=== PATIENT | male | born 1960 | race African-American/Black ===

== ENCOUNTER 2019-04-04 15:09 | Inpatient (IN) | payer MEDICAID, OTHER ==
[~2019-04-04] VITALS: Ht 185.4 cm; Wt 80.4 kg
[~2019-04-04 15:09] MED LIST: MEDICAL MARAJUANA; PHEN100C70
[2019-04-04 16:12] LABS: Basophils # (auto) 0 uL; Basophils % (auto) 0.3 % (0.0-2.0); Eosinophils # (auto) 0 uL; Lymphocytes # (auto) 0.4 uL; Neutrophils # (auto) 8.8 uL; White Blood Cell 9.5 10^3/uL (4.4-10.8)
[2019-04-04 16:14] LABS: Hematocrit 24.1 % (41.0-53.0); Hemoglobin 7.9 g/dL (13.5-17.5); Lymphocytes % (auto) 4.3 % (10.0-50.0); Mean Corpuscular Hemoglobin 26.8 pg (28.0-32.0); Mean Corpuscular Hgb Conc. 32.9 g/dL (32.0-36.0); Mean Corpuscular Volume 81.3 fL (80.0-100.0); Monocytes # (auto) 0.2 uL; Monocytes % (auto) 2.6 % (0.0-12.0); Neutrophils % (auto) 92.8 % (37.0-80.0); Platelet Count (auto) 324 10^3/uL (140-450); Red Blood Cells 2.96 10^6/uL (4.5-5.90); Red Cell Distribution Width 15.3 % (11.8-14.3)
[2019-04-04 16:30] LABS: Alanine Aminotransferase 23 U/L (16-61); Albumin 2.2 g/dL (3.4-5.0); Anion Gap 11 (5-15); BUN/Creatinine Ratio 14.1; Blood Urea Nitrogen 71 mg/dL (7-18); Calcium 7.7 mg/dL (8.5-10.1); Carbon Dioxide 21 mmol/L (21-32); Chloride 105 mmol/L (98-107); GFR African American 15 mL/min; GFR Non-African American 13 mL/min; Glucose 101 mg/dL (74-106); Potassium 5.2 mmol/L (3.5-5.1); Sodium 137 mmol/L (136-145)
[2019-04-04 16:38] LABS: Alkaline Phosphatase 66 U/L (45-117); Aspartate Aminotransferase 18 U/L (15-37); Bilirubin, Total 0.2 mg/dL (0.2-1.0); Total Protein 6.5 g/dL (6.4-8.2)
[2019-04-04] MEDS ORDERED: hydrALAZINE HCL 20 MG/ML VL IV ONE (21:00)
[2019-04-05 00:29] LABS: Urine Bacteria FEW /hpf (None Seen); Urine Blood 2+ /uL (Negative); Urine Hyaline Cast MOD /lpf (0 - 2); Urine Specific Gravity 1.012 (1.001-1.035); Urine WBC 2 /hpf (0 - 3)
[2019-04-05 02:13] LABS: Alcohol, Urine < 3.0 mg/dL (0-5); Amphetamine Screen, Urine NEGATIVE (NEGATIVE); Barbiturate Scree,Urine NEGATIVE (NEGATIVE); Benzodiazephine Screen, Urine NEGATIVE (NEGATIVE); Cannabinoid Screen, Urine NEGATIVE (NEGATIVE); Cocaine Screen, Urine NEGATIVE (NEGATIVE); Opiate Scree,Urine NEGATIVE (NEGATIVE); Phencyclidine Screen, Urine NEGATIVE (NEGATIVE)
[2019-04-05] MEDS ORDERED: ONDANSETRON HCL 4 MG/2 ML VIAL IV PRN ×2 (03:45→04:30)
[2019-04-05] MEDS ORDERED: ACETAMINOPHEN 500 MG TAB PO PRN ×2 (03:45→04:30)
[2019-04-05] MEDS ORDERED: LORazepam 2MG/ML-1ML VIAL IV PRN (03:45)
[2019-04-05] MEDS ORDERED: HYDROcodone-ACET 5/325MG TAB PO PRN (04:30)
[2019-04-05] MEDS ORDERED: TEMAZEPAM 15 MG CAP PO PRN (04:30)
[2019-04-05] MEDS ORDERED: cloNIDine HCL 0.1 MG TAB PO PRN (04:30)
[2019-04-05 04:49] LABS: Basophils # (auto) 0.1 uL; Eosinophils # (auto) 0.1 uL; Mean Corpuscular Volume 81.9 fL (80.0-100.0); Monocytes # (auto) 1.2 uL; Neutrophils # (auto) 8.3 uL; White Blood Cell 10.8 10^3/uL (4.4-10.8)
[2019-04-05 04:51] LABS: Basophils % (auto) 0.5 % (0.0-2.0); Eosinophils % (auto) 0.7 % (0.0-7.0); Hematocrit 24.4 % (41.0-53.0); Lymphocytes # (auto) 1.2 uL; Mean Corpuscular Hemoglobin 26.9 pg (28.0-32.0); Mean Corpuscular Hgb Conc. 32.8 g/dL (32.0-36.0); Monocytes % (auto) 10.9 % (0.0-12.0); Neutrophils % (auto) 76.9 % (37.0-80.0); Platelet Count (auto) 320 10^3/uL (140-450); Red Blood Cells 2.98 10^6/uL (4.5-5.90); Red Cell Distribution Width 15.4 % (11.8-14.3)
[2019-04-05 05:10] LABS: BUN/Creatinine Ratio 14.6; Calcium 7.4 mg/dL (8.5-10.1); Potassium 4.3 mmol/L (3.5-5.1)
[2019-04-05] MEDS ORDERED: AZITHROMYCIN 500MG/ 250ML 250 ML IV ONE (06:00)
[2019-04-05] MEDS ORDERED: PRE1T PO (06:06)
[2019-04-05] MEDS ORDERED: CHOL20007 PO (06:06)
[2019-04-05] MEDS ORDERED: AMLO5TAB15 PO (06:06)
[2019-04-05] MEDS ORDERED: HYDR-4296 PO (06:06)
[2019-04-05] MEDS ORDERED: ASPI-404 PO (06:06)
[2019-04-05] MEDS ORDERED: PHE100C PO (06:06)
[2019-04-05] MEDS ORDERED: LATA0.0015 EACHEYE (06:06)
[2019-04-05] MEDS ORDERED: FURO40TA4 PO (06:06)
[2019-04-05] MEDS: cefTRIAXone 1GM/50ML D5W 50 ML IV SCH (06:24)
[2019-04-05] MEDS ORDERED: hydrALAZINE HCL 20 MG/ML VL IV ONE (06:30)
--- NOTE | 2019-04-05 06:50 | NUR ---
Telemetry admit from ER MARGOTHSHIRA admitted to Telemetry unit. Patient oriented to Hector Dumont, primary RN, unit, room, bed, and unit policies regarding patient care and visiting hours. Patient now on continuous telemetry monitoring, tele box #79 and telemetry reading on arrival to unit is SR 60s. Patient weighed by bedscale and encouraged to call if they need something. All questions and concerns addressed, patient verbalized understanding.
[2019-04-05 07:07] VITALS: BP 146/74
--- NOTE | 2019-04-05 07:15 | NUR ---
Opening Shift Note Assumed care of patient. awake No S/S of distress/SOB or pain. Bed locked and in the lowest position, side rails up x2, call light with in reach. patient instructed to call for assistance,verbalized understanding.Will continue to monitor.
[2019-04-05] MEDS: PANTOPRAZOLE 40 MG TAB PO SCH (07:54)
[2019-04-05] MEDS ORDERED: SODIUM CHL 0.9% 1000 ML BAG XX ONE (08:15)
--- NOTE | 2019-04-05 08:25 | NUR ---
HERE TO SEE AND EXAMINED PATIENT RECEIVED ORDER
[2019-04-05 08:33] LABS: % Iron Saturation 12.4 % (20-55)
[2019-04-05 09:00] VITALS: BP 147/74
[2019-04-05] MEDS ORDERED: cefTRIAXone 1GM/50ML D5W 50 ML IV SCH (09:00)
--- NOTE | 2019-04-05 09:05 | NUR ---
FROM [facility], WILL BE HERE TO INSERT FERNANDO CATHETER FOR HEMODIALYSIS AT BEDSIDE
--- NOTE | 2019-04-05 09:50 | NUR ---
CONSENT FOR FERNANDO CATHETER INSERTION SIGNED BY PATIENT
--- NOTE | 2019-04-05 09:55 | NUR ---
DR. CALI INSERTED FERNANDO CATHETER AT BEDSIDE TO RIGHT SIDE OF NECK,PATIENT TOLERATED WELL
[2019-04-05] MEDS: FUROSEMIDE 40 MG TAB PO SCH (10:00)
[2019-04-05] MEDS ORDERED: FUROSEMIDE 40 MG TAB PO SCH (10:00)
[2019-04-05] MEDS: ASPirin-EC 81 mg tab PO SCH (10:00)
[2019-04-05] MEDS: DOCUSATE SOD 100 MG CAP PO SCH ×2 (10:00→21:46)
[2019-04-05] MEDS: amLODIPine BESYLATE 5 MG TAB PO SCH (10:00)
--- NOTE | 2019-04-05 11:30 | NUR ---
RECEIVED ORDER FROM DR. LAGUNA TO OBTAIN X RAY TO CHECK FERNANDO CATHETER POSITIONING
[2019-04-05 11:45] LABS: Hepatitis A Ab IgM Negative; Hepatitis B Core IgM Negative; Hepatitis B Surface Antigen Negative (Negative); Hepatitis C Antibody Negative (Negative)
[2019-04-05] MEDS: PHENYTOIN SODIUM 100 MG CAP PO SCH ×2 (11:53→21:39)
[2019-04-05] MEDS: predniSONE 20 MG TAB PO SCH (11:53)
--- NOTE | 2019-04-05 11:53 | NUR ---
PER PHOTONICS ENGINEER TO HOLD BP MEDS FOR HEMODIALYSIS THIS P.M.ALL BP MEDS INCLUDING LASIX HOLD
[2019-04-05] MEDS: hydrALAZINE HCL 25 MG TAB PO SCH ×3 (11:55→21:46)
--- NOTE | 2019-04-05 13:00 | NUR ---
DR.L. HALL HERE TO SEE AND EXAMINED PATIENT EXPLAIN TO PATIENT AND PLAN OF CARE AND DISEASE PROCESS.
[2019-04-05 13:25] VITALS: BP 159/84
[2019-04-05 16:19] VITALS: BP 162/89
--- NOTE | 2019-04-05 17:45 | NUR ---
administrative representative at bedside to start Hemodialysis treatment
--- NOTE | 2019-04-05 18:00 | NUR ---
DR. MIXON HERE TO SEE AND EXAMINED PATIENT
--- NOTE | 2019-04-05 19:01 | NUR ---
HEMODIALYSIS IN PROGRESS
--- NOTE | 2019-04-05 19:15 | NUR ---
RECEIVED PATIENT FROM DAY SHIFT RN. PATIENT RESTING IN BED. NO S/S OF DISTRESS NOTED. DENIED PAIN FOR NOW. FAMILY AT BEDSIDE. HEMODIALYSIS IN PROGRESS. PATIENT TOLERATED WELL. NO S/S OF REACTION AND DISCOMFORT NOTED. POC INSTRUCTED AND ENCOURAGED PATIENT TO CALL FOR CHEMISTRY FACULTY MEMBER IF NEEDED. BED IN LOWEST POSITION WITH PADDED SIDE RAILS UP X 2. CALL BLANCO WITHIN REACH. ALARM ON. CONTINUE TO MONITOR FOR CHANGES Q1H AND PRN.
[2019-04-05] MEDS ORDERED: EPOETIN ALFA 10,000 UNIT/1 ML VIAL SC ONE (21:00)
--- NOTE | 2019-04-05 21:47 | NUR ---
DIALYSIS FINISHED. PATIENT TOLERATED WELL. PATIENT'S BP 159/56 AFTER DIALYSIS, MIDNIGHT BP MEDICATION GIVEN FOR NOW, SINCE PATIENT MISSED HIS BP MEDICATIONS BECAUSE OF THE DIALYSIS. CONTINUE TO MONITOR.
[2019-04-05 22:00] VITALS: BP 159/56
--- NOTE | 2019-04-06 00:49 | NUR ---
REINFORCED PATIENT NPO FROM NOW ON. WATER REMOVED FROM BEDSIDE. CONTINUE TO MONITOR.
--- NOTE | 2019-04-06 02:20 | NUR ---
PATIENT SLEEPING. NO S/S OF DISTRESS NOTED. CONTINUE TO MONITOR.
[2019-04-06 05:00] VITALS: BP 146/85
[2019-04-06] MEDS: SODIUM CHLORIDE 0.9% 1,000 ML IV SCH ×2 (05:26→16:25)
[2019-04-06] MEDS: cefTRIAXone 1GM/50ML D5W 50 ML IV SCH (05:40)
[2019-04-06] MEDS: hydrALAZINE HCL 25 MG TAB PO SCH ×4 (05:40→23:39)
[2019-04-06] MEDS: PANTOPRAZOLE 40 MG TAB PO SCH (05:41)
--- NOTE | 2019-04-06 05:50 | NUR ---
SCHEDULED BP MEDICATION GIVEN ORDERED WITH LITTER WATER. REINFORCED NPO NOW. PATIENT VERBALIZED UNDERSTANDING. CONTINUE TO MONITOR.
[2019-04-06] MEDS: AZITHROMYCIN 500MG/ 250ML 250 ML IV SCH (06:58)
--- NOTE | 2019-04-06 07:30 | NUR ---
OPENING SHIFT NOTE: Received report from NOC RNCami. Assumed care of patient. Patient resting in bed. Denies pain. Bed in lowest position and rails x2 up. Call light within reach. Updated on plan of care. Will continue to monitor.
[2019-04-06 08:20] VITALS: BP 146/76
--- NOTE | 2019-04-06 08:30 | NUR ---
NPO: Patient was to be NPO for tunnel dialysis catheter placement today. Patient found eating. warehouse shift supervisor failed to inform day shift NA that patient had a procedure. Notified TIMOTHY [facility] that patient had ate a full meal. Will push patient back to 1000 and staff state they will premedicate patient with Zofran. Procedure still to occur.
[2019-04-06 08:35] LABS: Basophils # (auto) 0 uL; Eosinophils # (auto) 0 uL; Lymphocytes # (auto) 1.2 uL; Monocytes # (auto) 0.8 uL; Neutrophils # (auto) 4.7 uL; Red Blood Cells 3.01 10^6/uL (4.5-5.90); White Blood Cell 6.8 10^3/uL (4.4-10.8)
[2019-04-06 08:36] LABS: Basophils % (auto) 0.4 % (0.0-2.0); Eosinophils % (auto) 0.3 % (0.0-7.0); Hematocrit 24.2 % (41.0-53.0); Hemoglobin 8.1 g/dL (13.5-17.5); Lymphocytes % (auto) 18.3 % (10.0-50.0); Mean Corpuscular Hgb Conc. 33.5 g/dL (32.0-36.0); Mean Corpuscular Volume 80.6 fL (80.0-100.0); Monocytes % (auto) 12.1 % (0.0-12.0); Neutrophils % (auto) 68.9 % (37.0-80.0); Nucleated Red Blood Cells % 0.1 %; Platelet Count (auto) 331 10^3/uL (140-450); Red Cell Distribution Width 15.8 % (11.8-14.3)
[2019-04-06 08:45] LABS: INR 1.05 (0.9-1.15); Partial Thromboplastin Time 26.5 sec (23.64-32.05)
[2019-04-06 08:46] LABS: BUN/Creatinine Ratio 13.5; Calcium 7.3 mg/dL (8.5-10.1); Potassium 3.9 mmol/L (3.5-5.1)
--- NOTE | 2019-04-06 09:30 | NUR ---
FAMILY: Patient's , Lisa called. Verified password. Updated on plan of care. Questions answered.
--- NOTE | 2019-04-06 10:00 | NUR ---
MEDICATIONS: 1000 medications not given due to patient being NPO and off floor for procedure. Will administer when patient returns.
[2019-04-06] MEDS ORDERED: IOHEXOL 350 MG/ML 100ML IJ ONE (10:34)
[2019-04-06] MEDS ORDERED: LIDOCAINE 2%HCL (LOCAL ANESTH.) INJ 20ML MDV ONE (10:34)
[2019-04-06] MEDS ORDERED: ONDANSETRON HCL 4 MG/2 ML VIAL IV PRN (10:45)
[2019-04-06] MEDS ORDERED: fentaNYL CITRATE 100 MCG/2 ML VL ONE (11:30)
[2019-04-06] MEDS ORDERED: MIDAZOLAM HCL 1MG/1ML-2 ML VIAL ONE (11:30)
[2019-04-06] MEDS ORDERED: HEPARIN SODIUM (PORCINE) 5000 UNITS/ML 1ML VIAL ONE (11:36)
[2019-04-06 12:00] VITALS: BP 141/83
[2019-04-06] MEDS ORDERED: ONDANSETRON HCL 4 MG/2 ML VIAL IV ONE (12:30)
[2019-04-06] MEDS: amLODIPine BESYLATE 5 MG TAB PO SCH (12:36)
[2019-04-06] MEDS ORDERED: ONDANSETRON HCL 4 MG/2 ML VIAL IV SCH (13:00)
[2019-04-06] MEDS ORDERED: CYCLOPHOSPHAMIDE IV ONE ×3 (13:00→16:00)
[2019-04-06] MEDS ORDERED: MESNA IV SCH (13:00)
[2019-04-06] MEDS ORDERED: MESNA IV ONE ×3 (13:00→22:00)
[2019-04-06] MEDS ORDERED: D5W 5% IV ONE ×5 (13:00→22:00)
[2019-04-06] MEDS: PHENYTOIN SODIUM 100 MG CAP PO SCH ×2 (13:12→22:13)
[2019-04-06] MEDS: ASPirin-EC 81 mg tab PO SCH (13:12)
[2019-04-06] MEDS: DOCUSATE SOD 100 MG CAP PO SCH ×2 (13:12→22:13)
[2019-04-06] MEDS: predniSONE 20 MG TAB PO SCH (13:12)
[2019-04-06] MEDS: FUROSEMIDE 40 MG TAB PO SCH (13:12)
[2019-04-06 13:20] VITALS: BP 141/83
[2019-04-06] MEDS: IRON SUCROSE COMPLEX 200 MG in SODIUM CHL 0.9% 100 ML IV SCH (15:00)
[2019-04-06] MEDS: ONDANSETRON HCL 4 MG/2 ML VIAL IV SCH ×2 (16:27→22:13)
--- NOTE | 2019-04-06 16:40 | NUR ---
CHEMO: Cyclophosphamide started. Verified by TIMOTHY Moore. Patient premedicated with Zofran 4mg IV and Mensa 150mg IV is running along with. Patient continues to receive NS at 75ml/hr throughout transfusion. Inital BP 137/74 HR 101. Will continue to monitor.
[2019-04-06 17:13] VITALS: BP 126/68
--- NOTE | 2019-04-06 18:37 | NUR ---
MD: Dr Pati Owens to see patient. Orders received.
--- NOTE | 2019-04-06 18:49 | NUR ---
CHEMO: Cyclopphosphamide complete. Patient tolerated well. IV site intact and asymptomatic. No signs of nausea/vomiting. Last vital signs BP 141/75 HR 109.
--- NOTE | 2019-04-06 19:16 | NUR ---
CLOSING SHIFT NOTE: Report given to NOC RNCami. Endorsed care of patient. RN aware that patient needs to continue to received IVF or NS @ 75ml/hr for the next 12 hours at minimum.
--- NOTE | 2019-04-06 19:46 | NUR ---
RECEIVED PATIENT FROM DAY SHIFT RN. PATIENT RESTING IN BED. NO S/S OF DISTRESS NOTED. DENIED PAIN FOR NOW. BP 137/88, HR 73. POC INSTRUCTED AND ENCOURAGED PATIENT TO CALL FOR BAKING POWDER MIXER IF NEEDED. BED IN LOWEST POSITION WITH PADDED SIDE RAILS UP X 2. CALL BLANCO WITHIN REACH. ALARM ON. CONTINUE TO MONITOR FOR CHANGES Q1H AND PRN.
--- NOTE | 2019-04-06 21:01 | NUR ---
PATIENT'S FAMILY ANDREW CALLED, PASSWORD VERIFIED. UPDATED PATIENT'S CONDITIONS. ALL CONCERNS ADDRESSED. CONTINUE TO MONITOR.
[2019-04-06 21:52] VITALS: BP 141/76
--- NOTE | 2019-04-06 22:37 | NUR ---
SCHEDULED MESNA GIVEN ORDERED AND ALMOST COMPLETED. PATIENT TOLERATED WELL. NO S/S OF SIDE EFFECTS NOTED. CONTINUE TO MONITOR.
--- NOTE | 2019-04-07 01:44 | NUR ---
CHEMOTHERAPY ONGOING. NO S/S OF SIDE EFFECTS OF MEDICATION NOTED. CONTINUE TO MONITOR.
[2019-04-07] MEDS ORDERED: MESNA IV ONE (02:00)
[2019-04-07] MEDS ORDERED: D5W 5% IV ONE (02:00)
--- NOTE | 2019-04-07 02:15 | NUR ---
MESNA COMPLETED. NO S/S OF SIDE EFFECTS NOTED. CONTINUE TO MONITOR.
[2019-04-07] MEDS: ONDANSETRON HCL 4 MG/2 ML VIAL IV SCH (03:45)
[2019-04-07 05:12] VITALS: BP 137/71
[2019-04-07] MEDS: cefTRIAXone 1GM/50ML D5W 50 ML IV SCH (05:54)
[2019-04-07] MEDS: hydrALAZINE HCL 25 MG TAB PO SCH ×3 (05:55→17:26)
[2019-04-07] MEDS: PANTOPRAZOLE 40 MG TAB PO SCH (05:56)
--- NOTE | 2019-04-07 05:57 | NUR ---
PATIENT SLEEPING. NO S/S OF DISTRESS NOTED. CONTINUE TO MONITOR.
[2019-04-07 06:15] LABS: Basophils # (auto) 0 uL; Eosinophils # (auto) 0 uL; Eosinophils % (auto) 0.1 % (0.0-7.0)
[2019-04-07 06:17] LABS: Basophils % (auto) 0.4 % (0.0-2.0); Hematocrit 22.5 % (41.0-53.0); Hemoglobin 7.6 g/dL (13.5-17.5); Lymphocytes # (auto) 0.9 uL; Lymphocytes % (auto) 13.7 % (10.0-50.0); Mean Corpuscular Hemoglobin 27.3 pg (28.0-32.0); Mean Corpuscular Hgb Conc. 33.7 g/dL (32.0-36.0); Mean Corpuscular Volume 80.8 fL (80.0-100.0); Monocytes # (auto) 1.1 uL; Monocytes % (auto) 16.2 % (0.0-12.0); Neutrophils # (auto) 4.8 uL; Neutrophils % (auto) 69.6 % (37.0-80.0); Platelet Count (auto) 303 10^3/uL (140-450); Red Blood Cells 2.78 10^6/uL (4.5-5.90); Red Cell Distribution Width 15.7 % (11.8-14.3); White Blood Cell 6.9 10^3/uL (4.4-10.8)
[2019-04-07 06:38] LABS: % Iron Saturation 48.5 % (20-55); BUN/Creatinine Ratio 13.9; Calcium 7.1 mg/dL (8.5-10.1); Potassium 4.2 mmol/L (3.5-5.1)
[2019-04-07] MEDS: AZITHROMYCIN 500MG/ 250ML 250 ML IV SCH (06:52)
[2019-04-07] MEDS ORDERED: SODIUM CHL 0.9% 1000 ML BAG XX ONE (07:00)
--- NOTE | 2019-04-07 08:00 | NUR ---
OPENING SHIFT NOTE ASSUMED CARE OF PATIENT. PATIENT AWAKE AND ALERT. NO SOB OR SIGNS OF DISTRESS NOTED. INSTRUCTED ON POC AND TO CALL FOR ASSISTANCE PRN. BED IN LOWEST POSITION WITH SIDE RAILS UP X2. WILL CONTINUE TO MONITOR.
[2019-04-07 09:00] VITALS: BP 148/72
--- NOTE | 2019-04-07 10:30 | NUR ---
SPOKE WITH DR PRINCE AND DR SALAZAR. ORDERS PLACED. WILL CARRY OUT.
[2019-04-07] MEDS: predniSONE 20 MG TAB PO SCH (10:41)
[2019-04-07] MEDS: amLODIPine BESYLATE 5 MG TAB PO SCH (10:42)
[2019-04-07] MEDS: DOCUSATE SOD 100 MG CAP PO SCH (10:42)
[2019-04-07] MEDS: FUROSEMIDE 40 MG TAB PO SCH (10:42)
[2019-04-07] MEDS: ASPirin-EC 81 mg tab PO SCH (10:42)
[2019-04-07] MEDS: PHENYTOIN SODIUM 100 MG CAP PO SCH ×2 (10:43→22:00)
--- NOTE | 2019-04-07 12:30 | NUR ---
SPOKE WITH DR SAAB. ORDERS PLACED. WILL CARRY OUT.
[2019-04-07 13:00] VITALS: BP 158/72
[2019-04-07] MEDS: IRON SUCROSE COMPLEX 200 MG in SODIUM CHL 0.9% 100 ML IV SCH (13:09)
[2019-04-07 14:06] LABS: Protein, Urine 261.8 mg/dL (0.0-11.9)
--- NOTE | 2019-04-07 14:54 | NUR ---
o/c note SS order. I called [facility] [phone] and had to leave message on addmissions voice mail to call me back for setting up chair time for this pt
[2019-04-07 17:00] VITALS: BP 152/82
--- NOTE | 2019-04-07 20:00 | NUR ---
Opening Shift Note Assumed care of patient, awake and alert. No S/S of distress/SOB or pain. Instructed on POC and to call for assist PRN, will continue to monitor for changes Q1hr and PRN. Patient's bed in low position and call light in reach.
[2019-04-07] MEDS ORDERED: EPOETIN ALFA 10,000 UNIT/1 ML VIAL SC ONE (21:00)
[2019-04-07 22:00] VITALS: BP 148/78
[2019-04-08] MEDS: DOCUSATE SOD 100 MG CAP PO SCH ×3 (00:24→21:38)
--- NOTE | 2019-04-08 04:10 | NUR ---
Patient noted to have telemetry reading of RVR with ST 150s. B/P - 184/123/; Pulse - 106; resp - 20. He is alert and oriented. Patient denies chest pains and Shortness of breath. Skin warm, dry and intact. EKG results: ST& T 122 wave abnormality. Results taken to DAVID Roberts, for reviewing. New order obtained for Labetalol 10 mg IVP now.
[2019-04-08] MEDS ORDERED: LABETALOL HCL 5 MG/ML ML 20ML VIAL IV ONE (04:45)
[2019-04-08 05:00] VITALS: BP 184/123
--- NOTE | 2019-04-08 05:00 | NUR ---
Patient continues to deny chest pain and shortness of breath. No acute distress noted. HR. 99-100s. Increase in HR noted with activity e.g., ambulating to bathroom.
[2019-04-08] MEDS: PANTOPRAZOLE 40 MG TAB PO SCH (05:41)
[2019-04-08] MEDS: cefTRIAXone 1GM/50ML D5W 50 ML IV SCH (05:41)
[2019-04-08] MEDS: hydrALAZINE HCL 25 MG TAB PO SCH ×5 (05:43→21:38)
[2019-04-08 06:08] LABS: Basophils # (auto) 0 uL; Basophils % (auto) 0.3 % (0.0-2.0); Eosinophils # (auto) 0 uL; Eosinophils % (auto) 0.1 % (0.0-7.0); Hematocrit 27.7 % (41.0-53.0); Hemoglobin 9.2 g/dL (13.5-17.5); Lymphocytes # (auto) 1.1 uL; Lymphocytes % (auto) 11.8 % (10.0-50.0); Mean Corpuscular Hgb Conc. 33.1 g/dL (32.0-36.0); Mean Corpuscular Volume 81.5 fL (80.0-100.0); Monocytes # (auto) 1.2 uL; Monocytes % (auto) 12.1 % (0.0-12.0); Neutrophils # (auto) 7.3 uL; Neutrophils % (auto) 75.7 % (37.0-80.0); Nucleated Red Blood Cells % 0.1 %; Platelet Count (auto) 347 10^3/uL (140-450); Red Cell Distribution Width 15.8 % (11.8-14.3); White Blood Cell 9.6 10^3/uL (4.4-10.8)
[2019-04-08 06:18] LABS: Potassium 3.7 mmol/L (3.5-5.1)
[2019-04-08 06:33] LABS: BUN/Creatinine Ratio 12.9; Bilirubin, Total 0.2 mg/dL (0.2-1.0); Calcium 7.8 mg/dL (8.5-10.1)
--- NOTE | 2019-04-08 07:15 | NUR ---
Patient awake no acute distress noted. HR 65-67. Shift change report given to day RN.
[2019-04-08] MEDS: AZITHROMYCIN 500MG/ 250ML 250 ML IV SCH (07:28)
--- NOTE | 2019-04-08 08:35 | NUR ---
OPENING SHIFT NOTE ASSUMED CARE OF PATIENT. PATIENT AWAKE AND ALERT. NO SOB OR SIGNS OF DISTRESS NOTED. INSTRUCTED ON POC AND TO CALL FOR ASSISTANCE PRN. PATIENT IS SITTING COMFORTABLY IN BED. BED IN LOWEST POSITION WITH SIDE RAILS UP X2. WILL CONTINUE TO MONITOR.
[2019-04-08 08:43] VITALS: BP 133/81
[2019-04-08] MEDS: PHENYTOIN SODIUM 100 MG CAP PO SCH ×2 (09:48→21:38)
[2019-04-08] MEDS: predniSONE 20 MG TAB PO SCH (09:49)
[2019-04-08] MEDS: ASPirin-EC 81 mg tab PO SCH (09:49)
[2019-04-08] MEDS: FUROSEMIDE 40 MG TAB PO SCH (09:49)
[2019-04-08] MEDS: amLODIPine BESYLATE 5 MG TAB PO SCH (09:50)
--- NOTE | 2019-04-08 12:45 | NUR ---
DR HALL AT BEDSIDE DR SPOKE WITH PATIENT. ORDERS PLACED. WILL CARRY OUT
[2019-04-08 13:00] VITALS: BP 141/75
--- NOTE | 2019-04-08 13:15 | NUR ---
CALLED DR HENRIQUEZ AT HER ANSWERING SERVICE. AWAITING CALLBACK PER DR HALL ORDERS.
[2019-04-08] MEDS: IRON SUCROSE COMPLEX 200 MG in SODIUM CHL 0.9% 100 ML IV SCH (13:32)
[2019-04-08 17:07] VITALS: BP 136/78
--- NOTE | 2019-04-08 19:20 | NUR ---
RECEIVED PATIENT FROM DAY SHIFT RN. PATIENT RESTING IN BED. NO S/S OF DISTRESS NOTED. DENIED PAIN FOR NOW. DRESSING ON RUC FOR TUNNEL CATH C/D/I. POC INSTRUCTED AND ENCOURAGED PATIENT TO CALL FOR POPCORN ATTENDANT IF NEEDED. BED IN LOWEST POSITION WITH PADDED SIDE RAILS UP X 2. CALL BLANCO WITHIN REACH. ALARM ON. CONTINUE TO MONITOR FOR CHANGES Q1H AND PRN.
--- NOTE | 2019-04-08 20:40 | NUR ---
MD SULLIVAN AT BEDSIDE.
[2019-04-08 21:00] VITALS: BP 159/92
[2019-04-08] MEDS ORDERED: LORazepam 2MG/ML-1ML VIAL IV PRN (21:15)
--- NOTE | 2019-04-08 21:39 | NUR ---
PATIENT'S BP 159/92. MIDNIGHT BP MEDICATION GIVEN FOR NOW, CONTINUE TO MONITOR.
--- NOTE | 2019-04-09 01:57 | NUR ---
PATIENT SLEEPING. NO S/S OF DISTRESS NOTED. CONTINUE TO MONITOR.
[2019-04-09 04:30] VITALS: BP 140/70
[2019-04-09 05:20] LABS: Basophils # (auto) 0 uL; Eosinophils # (auto) 0 uL; Hemoglobin 7.4 g/dL (13.5-17.5); Lymphocytes # (auto) 1.3 uL; Neutrophils # (auto) 6.9 uL
[2019-04-09 05:22] LABS: Basophils % (auto) 0.5 % (0.0-2.0); Eosinophils % (auto) 0.4 % (0.0-7.0); Lymphocytes % (auto) 13.7 % (10.0-50.0); Mean Corpuscular Hemoglobin 27.4 pg (28.0-32.0); Mean Corpuscular Hgb Conc. 33.6 g/dL (32.0-36.0); Mean Corpuscular Volume 81.4 fL (80.0-100.0); Monocytes # (auto) 1.2 uL; Neutrophils % (auto) 72.4 % (37.0-80.0); Platelet Count (auto) 300 10^3/uL (140-450); Red Blood Cells 2.71 10^6/uL (4.5-5.90); Red Cell Distribution Width 16.3 % (11.8-14.3); White Blood Cell 9.5 10^3/uL (4.4-10.8)
[2019-04-09 05:32] LABS: Calcium 7.4 mg/dL (8.5-10.1)
[2019-04-09 05:34] LABS: Albumin 1.7 g/dL (3.4-5.0); Potassium 3.9 mmol/L (3.5-5.1)
[2019-04-09 05:36] LABS: BUN/Creatinine Ratio 13.9
[2019-04-09 05:37] LABS: Bilirubin, Total 0.1 mg/dL (0.2-1.0); Total Protein 4.9 g/dL (6.4-8.2)
[2019-04-09] MEDS: cefTRIAXone 1GM/50ML D5W 50 ML IV SCH (05:55)
[2019-04-09] MEDS: hydrALAZINE HCL 25 MG TAB PO SCH (05:55)
[2019-04-09] MEDS: PANTOPRAZOLE 40 MG TAB PO SCH (05:55)
[2019-04-09] MEDS: AZITHROMYCIN 500MG/ 250ML 250 ML IV SCH (06:34)
[2019-04-09] MEDS ORDERED: SODIUM CHL 0.9% 1000 ML BAG XX ONE (07:00)
--- NOTE | 2019-04-09 07:45 | NUR ---
OPENING SHIFT NOTE ASSUMED CARE OF PATIENT. PATIENT AWAKE AND ALERT. FOUND PATIENTS IV CATHETER LYING ON BED. PATIENT STATED HE REMOVED IT. ALERT AND ORIENTED X4. WILL PLACE NEW IV CATHETER. NO SOB OR SIGNS OF DISTRESS NOTED. INSTRUCTED ON POC AND TO CALL FOR ASSISTANCE PRN. BED IN LOWEST POSITION WITH SIDE RAILS UP X2. WILL CONTINUE TO MONITOR.
[2019-04-09 09:17] VITALS: BP 148/91
[2019-04-09] MEDS: DOCUSATE SOD 100 MG CAP PO SCH (09:24)
[2019-04-09] MEDS: FUROSEMIDE 40 MG TAB PO SCH (09:24)
[2019-04-09] MEDS: predniSONE 20 MG TAB PO SCH (09:24)
[2019-04-09] MEDS: PHENYTOIN SODIUM 100 MG CAP PO SCH (09:25)
[2019-04-09] MEDS: ASPirin-EC 81 mg tab PO SCH (09:25)
[2019-04-09] MEDS: amLODIPine BESYLATE 5 MG TAB PO SCH (09:29)
--- NOTE | 2019-04-09 10:05 | NUR ---
PATIENT LEFT ROOM WITHOUT NOTIFYING ANYBODY. LEFT TELE BOX IN ROOM. CALLED SECURITY TO REPORT. PT HAD NO IV IN PLACE.
--- NOTE | 2019-04-09 10:15 | NUR ---
CALLED PATIENTS CONTACT PHONE NUMBER. ANSWERED. STATED SHE PICKED UP PATIENT. INFORMED HER THAT IF HIS PREVIOUS SYMPTOMS CONTINUE, TO CALL HIS PCP OR VISIT THE ER.
--- NOTE | 2019-04-09 11:30 | NUR ---
CALLED DR HALL. LEFT A MESSAGE STATING PATIENT HAS LEFT FACILITY AMA. PT IS WITH . LEFT TELE BOX AND IS WITHOUT AN IV.
[2019-04-09] MEDS ORDERED: EPOETIN ALFA 10,000 UNIT/1 ML VIAL SC ONE (21:00)
== END 2019-04-09 10:30 | disposition left against medical advice (07) | DRG 346 ==
LOC: ER 15:14 → TELE 15:15 → TELE-WESTW 04-05 06:39
PROVIDERS: ADMIT Nurse Practitioner Family; ATTEND Hospitalist
PROC: 0JH63XZ Insertion of Tunneled Vascular Access Device into Chest Subcutaneous Tissue and Fascia, Percutaneous Approach (ICD-10-PCS; principal; 2019-04-06)
PROC: 02H633Z Insertion of Infusion Device into Right Atrium, Percutaneous Approach (ICD-10-PCS; 2019-04-06)
PROC: B2141ZZ Fluoroscopy of Right Heart using Low Osmolar Contrast (ICD-10-PCS; 2019-04-06)
PROC: 5A1D70Z Performance of Urinary Filtration, Intermittent, Less than 6 Hours Per Day (ICD-10-PCS; 2019-04-06)
PROC: B244ZZZ Ultrasonography of Right Heart (ICD-10-PCS; 2019-04-06)
DX: M32.14 Glomerular disease in systemic lupus erythematosus (principal); E43 Unspecified severe protein-calorie malnutrition; N17.9 Acute kidney failure, unspecified; I12.0 Hypertensive chronic kidney disease with stage 5 chronic kidney disease or end stage renal disease; E87.5 Hyperkalemia; D50.9 Iron deficiency anemia, unspecified; F17.200 Nicotine dependence, unspecified, uncomplicated; G40.409 Other generalized epilepsy and epileptic syndromes, not intractable, without status epilepticus; M32.19 Other organ or system involvement in systemic lupus erythematosus; N18.6 End stage renal disease; F03.90 Unspecified dementia, unspecified severity, without behavioral disturbance, psychotic disturbance, mood disturbance, and anxiety; D63.1 Anemia in chronic kidney disease; K59.00 Constipation, unspecified; L29.9 Pruritus, unspecified; R21 Rash and other nonspecific skin eruption; M19.90 Unspecified osteoarthritis, unspecified site; K12.1 Other forms of stomatitis; Z79.82 Long term (current) use of aspirin; Z80.3 Family history of malignant neoplasm of breast; Z99.2 Dependence on renal dialysis; Z79.899 Other long term (current) drug therapy; Z68.23 Body mass index [BMI] 23.0-23.9, adult
CPT/HCPCS: 36415; 71045; 76942; 80048; 80053; 80061; 80074; 80185; 80307; 81001; 82306; 82570; 82728; 83540; 83550; 83970; 84100; 84156; 84300; 84484; 85025; 85610; 85652; 85730; 86160; 87040; 87081; 87086; 90935; 93005; 99152; 99153; G0378; J0696; J0885; J1642; J1756; J2250; J2405; J7060; J9070; J9209

== ENCOUNTER 2019-04-10 18:31 | Inpatient (IN) | payer MEDICAID ==
[~2019-04-10] VITALS: Ht 180.3 cm; Wt 79.1 kg
[~2019-04-10 18:31] MED LIST changes: +AMLO5TAB15 PO; +ASPI-404 PO; +CHOL20007 PO; +FURO40TA4 PO; +HYDR-4296 PO; +LATA0.0015 EACHEYE; +PHE100C PO; +PRE1T PO
[2019-04-10 20:04] LABS: Basophils # (auto) 0 uL; Eosinophils # (auto) 0 uL; Hemoglobin 8.5 g/dL (13.5-17.5); Lymphocytes # (auto) 0.5 uL; Nucleated Red Blood Cells % 0.1 %; White Blood Cell 14.3 10^3/uL (4.4-10.8)
[2019-04-10 20:05] LABS: Basophils % (auto) 0.1 % (0.0-2.0); Hematocrit 26.2 % (41.0-53.0); Lymphocytes % (auto) 3.5 % (10.0-50.0); Mean Corpuscular Hemoglobin 26.8 pg (28.0-32.0); Mean Corpuscular Hgb Conc. 32.4 g/dL (32.0-36.0); Mean Corpuscular Volume 82.9 fL (80.0-100.0); Monocytes # (auto) 0.7 uL; Monocytes % (auto) 5.1 % (0.0-12.0); Neutrophils # (auto) 13.1 uL; Neutrophils % (auto) 91.3 % (37.0-80.0); Platelet Count (auto) 353 10^3/uL (140-450); Red Blood Cells 3.16 10^6/uL (4.5-5.90); Red Cell Distribution Width 16.2 % (11.8-14.3)
[2019-04-10 20:18] LABS: Albumin 2.3 g/dL (3.4-5.0); BUN/Creatinine Ratio 11.9; Potassium 4.4 mmol/L (3.5-5.1)
[2019-04-10 20:21] LABS: Bilirubin, Total 0.2 mg/dL (0.2-1.0); Total Protein 6.4 g/dL (6.4-8.2)
[2019-04-10 20:22] LABS: Magnesium 2.1 mg/dL (1.6-2.6)
[2019-04-11] MEDS ORDERED: hydrALAZINE HCL 20 MG/ML VL IV ONE (04:30)
[2019-04-11] MEDS ORDERED: SODIUM CHL 0.9% 1000 ML BAG XX ONE (12:15)
[2019-04-11] MEDS ORDERED: NITROGLYCERIN 0.4 MG SL TAB SL PRN (12:30)
[2019-04-11] MEDS ORDERED: MORPHINE SULF INJ 2 MG/ML SYRINGE 1ML IV PRN (12:30)
--- NOTE | 2019-04-11 13:00 | NUR ---
Telemetry admit from ER SHIRA JUSTIN admitted to Telemetry unit after SBAR received. Patient oriented to Trixie Soliz RN primary RN, unit, room, bed, and unit policies regarding patient care and visiting hours. Patient now on continuous telemetry monitoring, tele box #39. Patient encouraged to call if they need something. All questions and concerns addressed, patient verbalized understanding. Note: pony edger at bedside to complete treatment as ordered.
--- NOTE | 2019-04-11 17:15 | NUR ---
DIALYSIS COMPLETE Treatment completed. Patient tolerated well. Patients at bedside. BP 147/74, HR 60, 2L removed. See flow sheet in chart.
--- NOTE | 2019-04-11 17:52 | NUR ---
TELEPHONE ORDERS Phone call placed to Dr Deedee Shipley to report BP, HR, and reports of anxiety. T/O read back and noted for PRN BP medications. MD instructed RN not call for him to report anxiety "unless patient is having a panic attack".
[2019-04-11] MEDS ORDERED: hydrALAZINE HCL 20 MG/ML VL IV PRN (18:00)
[2019-04-11] MEDS: LATANOPROST 0.005 % OPTH(EYE) SOL 2.5ML EACHEYE SCH (18:00)
--- NOTE | 2019-04-11 19:30 | NUR ---
Opening Shift Note Assumed care of patient, awake and alert. Resting in bed comfortably. No S/S of distress/SOB or pain. Seizure precautions in place. Instructed on POC and to call for assist PRN, will continue to monitor for changes Q1hr and PRN.
[2019-04-11] MEDS ORDERED: EPOETIN ALFA 10,000 UNIT/1 ML VIAL SC ONE (21:00)
[2019-04-11] MEDS: PHENYTOIN SODIUM 100 MG CAP PO SCH (21:59)
[2019-04-12 00:30] VITALS: BP 165/80
--- NOTE | 2019-04-12 04:47 | NUR ---
ROUNDS PATIENT RESTING IN BED COMFORTABLY WITH EYES CLOSE, EVEN AND UNLABORED RESPIRATIONS OF 18BPM NOTED. SIDE RAILS UP X2, BED AT ITS LOWEST POSITION, CALL LIGHT WITHIN REACH. WILL CONTINUE TO ROUND Q1H AND PRN.
[2019-04-12 05:26] LABS: Albumin 1.7 g/dL (3.4-5.0); Calcium 7.2 mg/dL (8.5-10.1); Potassium 3.7 mmol/L (3.5-5.1)
[2019-04-12 05:30] LABS: BUN/Creatinine Ratio 10.4; Bilirubin, Total 0.3 mg/dL (0.2-1.0); Total Protein 5.3 g/dL (6.4-8.2)
--- NOTE | 2019-04-12 07:26 | NUR ---
ENDORSED CARE TO JOSETTE AGUIRRE
--- NOTE | 2019-04-12 07:32 | NUR ---
Opening Shift Note Assumed care of patient, pt in bed sleeping breathing even and unlabored. No S/S of distress/SOB or pain. Will continue to monitor for changes Q1hr and PRN.
[2019-04-12 08:37] VITALS: BP 132/65
[2019-04-12] MEDS: predniSONE 20 MG TAB PO SCH (09:56)
[2019-04-12] MEDS: CHOLECALCIFEROL (VITD3) 1,000 UNIT TAB PO SCH (09:56)
[2019-04-12] MEDS: ASPirin-EC 81 mg tab PO SCH (09:56)
[2019-04-12] MEDS: amLODIPine BESYLATE 5 MG TAB PO SCH (09:57)
[2019-04-12] MEDS: hydrALAZINE HCL 25 MG TAB PO SCH (09:58)
[2019-04-12] MEDS: FUROSEMIDE 40 MG TAB PO SCH (09:58)
[2019-04-12] MEDS: PHENYTOIN SODIUM 100 MG CAP PO SCH ×2 (09:58→22:08)
[2019-04-12] MEDS ORDERED: PHENYTOIN SODIUM 100 MG CAP PO SCH (10:00)
[2019-04-12 12:21] VITALS: BP 143/72
--- NOTE | 2019-04-12 13:00 | NUR ---
PATIENT AND PATIENT SPOUSE UPDATED ON PLAN OF CARE, BOTH VERBALIZED UNDERSTANDING.
[2019-04-12 16:42] VITALS: BP 137/69
[2019-04-12] MEDS: LATANOPROST 0.005 % OPTH(EYE) SOL 2.5ML EACHEYE SCH (18:08)
--- NOTE | 2019-04-12 19:09 | NUR ---
REPORT GIVEN TO OPERATOR TECHNICIAN RN, PATIENT IN BED, CALL LIGHT WITHIN REACH, BED IN LOWEST POSITION, OPERATOR TECHNICIAN WILL ASSUME CARE.
--- NOTE | 2019-04-12 19:20 | NUR ---
OPENING NOTE Received report from day shift RN. Patient is A&O X's 4 with no s/s of distress. Patient denies any pain/SOB. Educated patient on POC and to use call light when in need of assistance. Patient verbalized understanding. Bed is in lowest/locked position with padded side rails up X's 2. Call light is within reach of patient. Will continue care.
[2019-04-12 22:00] VITALS: BP 143/78
[2019-04-13 05:00] VITALS: BP 146/79
--- NOTE | 2019-04-13 07:44 | NUR ---
Opening Shift Note Assumed care of patient, awake and alert. No S/S of distress/SOB or pain. Instructed on POC and to call for assist PRN, will continue to monitor for changes Q1hr and PRN. Call light within reach and bed in lowest position
[2019-04-13 08:00] VITALS: BP 135/65
[2019-04-13 09:00] VITALS: BP 135/65
--- NOTE | 2019-04-13 09:19 | NUR ---
[facility] CALLED [facility] REGARDING SCHEDULING OF PATIENT FOR DIALYSIS. PT IS CURRENTLY NOT ON THE SCHEDULE FOR THE DAY.
[2019-04-13] MEDS: FUROSEMIDE 40 MG TAB PO SCH (09:48)
[2019-04-13] MEDS: CHOLECALCIFEROL (VITD3) 1,000 UNIT TAB PO SCH (09:48)
[2019-04-13] MEDS: PHENYTOIN SODIUM 100 MG CAP PO SCH (09:49)
[2019-04-13] MEDS: hydrALAZINE HCL 25 MG TAB PO SCH (09:50)
[2019-04-13] MEDS: predniSONE 20 MG TAB PO SCH (09:50)
[2019-04-13] MEDS: amLODIPine BESYLATE 5 MG TAB PO SCH (09:50)
[2019-04-13] MEDS: ASPirin-EC 81 mg tab PO SCH (09:51)
--- NOTE | 2019-04-13 11:37 | NUR ---
HEP B PANEL SPOKE TO SS ABOUT PENDING HEP B PANEL. WILL CALL PCP Deedee ARGUETA FOR ORDERS IF NOT ALREADY DONE.
--- NOTE | 2019-04-13 11:38 | NUR ---
DYANA TURPIN MD REGARDING HEP B PANEL.
--- NOTE | 2019-04-13 11:47 | NUR ---
RETURNED PAGE RETURNED PAGE REGARDING HEP B PANEL. NO NEW ORDERS AT THIS TIME.
--- NOTE | 2019-04-13 12:25 | NUR ---
HD chair time-pending Spoke to social media director, per SS, she is still awaiting call back regarding outpatient HD chair time.
[2019-04-13 13:00] VITALS: BP 147/80
--- NOTE | 2019-04-13 14:42 | NUR ---
PAGE TO SS PAGE SS REGARDING CHAIR TIME AT DIALYSIS CENTER
--- NOTE | 2019-04-13 14:46 | NUR ---
SPOKE TO SS SS UPDATED PRIMARY RN ON A CHAIR FOR DIALYSIS AT [facility]. PT WILL HAVE DIALYSIS ON MONDAYS, WEDNESDAYS AND FRIDAYS.
[2019-04-13] MEDS ORDERED: PRE1T PO (14:53)
--- NOTE | 2019-04-13 15:11 | NUR ---
AT BEDSIDE MD Deedee ARGUETA AT BEDSIDE. ALL QUESTIONS AND CONCERNS ADDRESSED AT THIS TIME
--- NOTE | 2019-04-13 15:15 | NUR ---
CALLED SS CALLED SS REGARDING DISCHARGE ORDER. PER SS OKAY TO DISCHARGE PT TODAY PENDING HOME HEALTH SAFETY EVALUATION THAT CAN BE COMPLETED AFTER D/C. Addendum: 04/13/19 at 1624 by CEM RAMEY RN RN SS PERSONNEL IS ANA
[2019-04-13 15:59] VITALS: BP 147/80
--- NOTE | 2019-04-13 16:12 | NUR ---
assessment Patient is a 58 year old male who is alert and oriented. Prior to admission patient lived home with his and functioned independently. per patient he will return home with his on discharge. Patient informed me he has a fww and a cane for home use. Patient has a ss consult for new dialysis chair time. Patient has no issues with his new diagnosis. Patient also has a ss consult for home health. Patient agrees to both. I informed patient he has a right to privacy. Patient does not have a POA and advanced directive. I have offered patient information on POA and advanced directives. I informed the patient the advantages and benefits of having an Advanced Directive. Patient verbalized understanding and agreed to discharge plan. Addendum: 04/13/19 at 1617 by Latoya MAYES Amended: Links added.
[2019-04-13 16:51] VITALS: BP 143/81
--- NOTE | 2019-04-13 17:14 | NUR ---
re-assessment Per patient he is refusing home health safety eval. AGUIRRE notified. Addendum: 04/13/19 at 1715 by Latoya MAYES Amended: Links added.
--- NOTE | 2019-04-13 17:54 | NUR ---
Discharge instructions given as ordered. Encourage to follow up with PMD as instructed. All questions and concerns addressed. Patient verbalized understanding. Medication reconciliation form completed and copy given to patient. IV removed with catheter intact, pressure dressing applied. Telemetry unit returned to ICU. Patient ambulated to vehicle accompanied by staff member and family with all personal belongings. No distress noted at time of departure.
--- NOTE | 2019-04-13 18:02 | NUR ---
D/C planning Per consult for dialysis chair time and home health. Contacted [facility] Ph: ) fax: ) faxed medical records. Per Eloisa from [facility] pt chair time will be Tuesday, Tuesday, Tuesday at 13:05 pt needs to arrived on Tuesday at 12:30 first visit. Per Latoya Pt refused home health service. Informed TIMOTHY Clarke. Addendum: 04/13/19 at 1806 by JERI MAYNARD Amended: Links added.
[2019-04-14] MEDS ORDERED: SODIUM CHL 0.9% 1000 ML BAG XX ONE (07:00)
[2019-04-14] MEDS ORDERED: EPOETIN ALFA 10,000 UNIT/1 ML VIAL SC ONE (21:00)
== END 2019-04-13 17:54 | disposition home or self-care (01) | DRG 346 ==
LOC: ER 18:33 → TELE-CENTR 18:34
PROVIDERS: ADMIT Internal Medicine; ATTEND Internal Medicine
PROC: 5A1D70Z Performance of Urinary Filtration, Intermittent, Less than 6 Hours Per Day (ICD-10-PCS; principal; 2019-04-11)
DX: M32.14 Glomerular disease in systemic lupus erythematosus (principal); N17.9 Acute kidney failure, unspecified; I12.0 Hypertensive chronic kidney disease with stage 5 chronic kidney disease or end stage renal disease; E88.09 Other disorders of plasma-protein metabolism, not elsewhere classified; D72.829 Elevated white blood cell count, unspecified; F41.9 Anxiety disorder, unspecified; N18.6 End stage renal disease; H40.9 Unspecified glaucoma; D64.9 Anemia, unspecified; G40.909 Epilepsy, unspecified, not intractable, without status epilepticus; Z83.3 Family history of diabetes mellitus; Z80.3 Family history of malignant neoplasm of breast; Z92.21 Personal history of antineoplastic chemotherapy; Z99.2 Dependence on renal dialysis
CPT/HCPCS: 36415; 80053; 83735; 84484; 85025; 87081; 90935; 93005; 96372; 96374; 96375; G0378; J0885; J1642